=== PATIENT | male | born 1960 | race Caucasian/White ===

== ENCOUNTER 2018-11-16 10:12 | Day surgery (SDC) | payer OTHER, MEDICAID ==
[~2018-11-16 10:12] MED LIST: CIPROFLOXACIN 400MG/D5W 200 ML IVPB
[2018-11-16 13:37] LABS: INR 0.93; PROTIME 12.6 Sec (11.9-14.9)
[2018-11-16 13:38] LABS: PARTIAL THROMBOPLASTIN TIME 30.3 Sec (23.0-35.0)
[2018-11-16] MEDS ORDERED: LIDOCAINE 1% (MDV) 20 ML INJ (15:00)
[2018-11-16] MEDS ORDERED: PROPOFOL 20 ML (15:00)
[2018-11-16] MEDS ORDERED: MIDAZOLAM 1 MG/ML 2 ML INJ (15:00)
[2018-11-16] MEDS ORDERED: CIPROFLOXACIN 400MG/D5W 200 ML (15:02)
[2018-11-16] MEDS: IOHEXOL 300MG/ML 30 ML BTL (15:27)
[2018-11-16] MEDS ORDERED: SUGAMMADEX SODIUM 200 MG/2 ML VIAL IV (15:39)
[2018-11-16] MEDS ORDERED: HYDROmorphONE 1 MG/5 ML IV SYRINGE IV (16:30)
== END 2018-11-16 17:20 | disposition home or self-care (01) ==
LOC: SDS 10:12
DX: N35.819 Other urethral stricture, male, unspecified site (principal); I10 Essential (primary) hypertension; E78.5 Hyperlipidemia, unspecified; E11.9 Type 2 diabetes mellitus without complications
CPT/HCPCS: 52332; 52344; 74420; 82962; 85610; 85730